=== PATIENT | male | born 1995 | race Caucasian/White ===

== ENCOUNTER 2017-01-03 15:22 | Emergency (ER) | payer OTHER ==
[~2017-01-03] VITALS: Ht 177.8 cm; Wt 68.0 kg
[2017-01-03 15:28] VITALS: BP 136/71
--- NOTE | 2017-01-03 16:00 | NUR ---
jil muir at bedside for eval.
--- NOTE | 2017-01-03 16:07 | NUR ---
CALLED , LEFT MESSAGE ON VOICEMAIL
[2017-01-03] MEDS ORDERED: IBUPROFEN 600 MG TABLET PO ONE ×2 (16:20→16:30)
--- NOTE | 2017-01-03 16:24 | NUR ---
pt refusing toradol shot. jil muir made aware. verbal order for motrin 600mg given po.
[2017-01-03] MEDS ORDERED: KETOROLAC TROMETHAMINE INJ 60 MG/2 ML VIAL IM ONE (16:30)
--- NOTE | 2017-01-03 16:33 | NUR ---
REPAGED , LEFT MESSAGE ON VOICEMAIL
== END 2017-01-03 17:06 | disposition home or self-care (01) ==
LOC: ER 15:24
DX: G43.109 Migraine with aura, not intractable, without status migrainosus (principal); H53.8 Other visual disturbances
CPT/HCPCS: 99283; A4606; Z7610

== ENCOUNTER 2019-01-17 14:29 | Emergency (ER) | payer OTHER ==
[~2019-01-17] VITALS: Ht 175.3 cm; Wt 68.0 kg
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
[2019-01-17 15:41] VITALS: BP 125/81
--- NOTE | 2019-01-17 15:42 | NUR ---
Patient discharged to home in stable condition. Written and verbal after care instructions given. Patient verbalizes understanding of instruction.
== END 2019-01-17 15:42 | disposition home or self-care (01) ==
LOC: ER 14:29
DX: S80.02XA Contusion of left knee, initial encounter (principal); G43.909 Migraine, unspecified, not intractable, without status migrainosus; Z91.018 Allergy to other foods; W22.8XXA Striking against or struck by other objects, initial encounter; Y93.B9 Activity, other involving muscle strengthening exercises; Y92.89 Other specified places as the place of occurrence of the external cause; Y99.0 Civilian activity done for income or pay
CPT/HCPCS: 73564-TC